=== PATIENT | female | born 1995 ===

== ENCOUNTER 2018-05-11 22:23 | Emergency (ER) | payer OTHER ==
[2018-05-11 22:24] VITALS: BMI 25.3
[2018-05-11 22:32] VITALS: BP 117/73; PULSE 83; RESP 20; TEMP 98.3; O2SAT 100
--- NOTE | 2018-05-11 23:14 | C.PDOC ---
History Of Present Illness 22 year old female presents to the ED c/o pain and swelling to her left 3rd toe. Patient reports that today while walking she tripped and injured her left foot mainly her left 3rd toe. Patient denies any other injury, weakness, numbness, rash. Time Seen by Provider: 05/11/18 22:36 Chief Complaint (Nursing): Lower Extremity Problem/Injury History Per: Patient History/Exam Limitations: no limitations Onset/Duration Of Symptoms: Hrs Current Symptoms Are (Timing): Still Present Recent travel outside of the [place]: No Additional History Per: Patient - Ankle/Foot Description Of Injury: Fell Currently Unable To: Bend Or Move Past Medical History Reviewed: Historical Data, Nursing Documentation, Vital Signs Vital Signs: Last Vital Signs Temp 98.3 F 05/11/18 22:26 Pulse 83 05/11/18 22:26 Resp 20 05/11/18 22:26 BP 117/73 05/11/18 22:26 Pulse Ox 100 05/11/18 23:21 - Medical History PMH: No Chronic Diseases Surgical History: No Surg Hx Family History: States: Unknown Family Hx - Social History Hx Alcohol Use: Yes Hx Substance Use: No - Immunization History Hx Tetanus Toxoid Vaccination: No Hx Influenza Vaccination: No Hx Pneumococcal Vaccination: No Review Of Systems Constitutional: Negative for: Fever, Chills Cardiovascular: Negative for: Chest Pain Respiratory: Negative for: Shortness of Breath Gastrointestinal: Negative for: Nausea, Vomiting Musculoskeletal: Positive for: Foot Pain Skin: Positive for: Bruising Neurological: Negative for: Weakness, Numbness Physical Exam - Physical Exam Appears: Non-toxic, No Acute Distress Skin: Normal Color, Warm, Dry Head: Atraumatic, Normacephalic Eye(s): bilateral: Normal Inspection Neck: Normal ROM, Supple Extremity: Normal ROM, Tenderness (ecchymosis distal left 3rd great toe), Capillary Refill (< 2 seconds), No Deformity, Swelling (minimal left 3rd great toe) Extremity: Bilateral: Normal Color And Temperature Pulses: Left Dorsalis Pedis: Normal, Right Dorsalis Pedis: Normal Neurological/Psych: Oriented x3, Normal Speech Gait: Steady ED Course And Treatment O2 Sat by Pulse Oximetry: 100 (ON RA) Pulse Ox Interpretation: Normal - Other Rad Left foot X-Ray X-Ray: Interpreted by Me, Viewed By Me Interpretation: non displaced fracture of left 3rd PIP Progress Note: Plan: - Motrin 600 mg PO. - Left foot X-Ray. Patient's toes were naida taped ( Lt 2nd and 3rd toes). Patient was instructed to follow up with PMD in 1-2 days for further evaluation. Reevaluation Time: 23:24 Reassessment Condition: Improved Disposition Counseled Patient/Family Regarding: Diagnosis, Need For Followup - Disposition Referrals: [facility] [Outside] [facility] [Outside] Disposition: HOME/ ROUTINE Disposition Time: 23:25 Condition: STABLE Additional Instructions: Leg elevation Apply ICE to area Follow up in podiatry clinic Motrin for pain Return to ER if worse Prescriptions: Ibuprofen [Motrin] 600 mg PO Q6H #20 tab Instructions: Toe Fracture (DC) Forms: [facility] [facility] (Wallisian) - Clinical Impression Clinical Impression: Toe fracture, left - 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 - Scribe Statement The provider has reviewed the documentation as recorded by the Scribe Scooter Perdomo All medical record entries made by the Scribe were at my direction and personally dictated by me. I have reviewed the chart and agree that the record accurately reflects my personal performance of the history, physical exam, medical decision making, and the department course for this patient. I have also personally directed, reviewed, and agree with the discharge instructions and disposition.
--- NOTE | 2018-05-12 10:07 | RAD ---
PROCEDURE: Left Foot Radiographs. HISTORY: R/O FX COMPARISON: None. FINDINGS: BONES: Minimally displaced intra-articular fracture along the lateral base of the 3rd digit middle phalanx. JOINTS: Normal. SOFT TISSUES: Normal. OTHER FINDINGS: None. IMPRESSION: Minimally displaced fracture along the lateral base of the 3rd middle digit phalanx.
== END 2018-05-11 23:29 | disposition home or self-care (01) ==
LOC: C.ER 22:23
DX: S92.515A Nondisplaced fracture of proximal phalanx of left lesser toe(s), initial encounter for closed fracture (principal); W01.0XXA Fall on same level from slipping, tripping and stumbling without subsequent striking against object, initial encounter; Y93.01 Activity, walking, marching and hiking

== ENCOUNTER 2018-07-15 05:09 | Emergency (ER) | payer OTHER ==
[2018-07-15 05:09] VITALS: BMI 25.3
[2018-07-15 05:22] VITALS: RESP 20
--- NOTE | 2018-07-15 05:48 | C.PDOC ---
History Of Present Illness 22 year old female with no significant PMHx presents to the ED c/o left arm pain radiating to her left shoulder that started today at 03:00. Patient states she a venipuncture done and was poked in her arm multiple times which she thinks is causing the pain. Patient denies fever, chills, injury, fall, trauma, SOB, CP, weakness, numbness. Time Seen by Provider: 07/15/18 05:40 Chief Complaint (Nursing): Upper Extremity Problem/Injury History Per: Patient History/Exam Limitations: no limitations Onset/Duration Of Symptoms: Hrs Current Symptoms Are (Timing): Still Present Quality: "Pain" Recent travel outside of the [place]: No Additional History Per: Patient Past Medical History Reviewed: Historical Data, Nursing Documentation, Vital Signs Vital Signs: Last Vital Signs Temp 98.3 F 07/15/18 05:16 Pulse 89 07/15/18 05:16 Resp 20 07/15/18 05:16 BP 121/87 07/15/18 05:16 Pulse Ox 98 07/15/18 05:47 - Medical History PMH: No Chronic Diseases Surgical History: No Surg Hx Family History: States: Unknown Family Hx - Social History Hx Alcohol Use: Yes Hx Substance Use: No - Immunization History Hx Tetanus Toxoid Vaccination: No Hx Influenza Vaccination: No Hx Pneumococcal Vaccination: No Review Of Systems Constitutional: Negative for: Fever, Chills Cardiovascular: Negative for: Chest Pain, Palpitations Respiratory: Negative for: Cough, Shortness of Breath Gastrointestinal: Negative for: Nausea, Vomiting Musculoskeletal: Positive for: Arm Pain Skin: Negative for: Rash Neurological: Negative for: Weakness, Numbness Physical Exam - Physical Exam Appears: Non-toxic, No Acute Distress Skin: Normal Color, Warm, Dry Head: Atraumatic, Normacephalic Eye(s): bilateral: Normal Inspection, PERRL Oral Mucosa: Moist Neck: Normal ROM, Supple Chest: Symmetrical, No Tenderness Cardiovascular: Rhythm Regular Respiratory: Normal Breath Sounds, No Rales, No Rhonchi, No Wheezing Gastrointestinal/Abdominal: Soft, No Tenderness, No Guarding, No Rebound Extremity: Normal ROM, No Tenderness, Capillary Refill (< 2 seconds), No Swelling, No Other (discoloration to left arm or palpable mass) Extremity: Bilateral: Atraumatic Pulses: Left Radial: Normal, Right Radial: Normal Neurological/Psych: Oriented x3, Normal Speech, Normal Cognition, Normal Motor, Normal Sensation Gait: Steady ED Course And Treatment O2 Sat by Pulse Oximetry: 98 (ON RA) Pulse Ox Interpretation: Normal Progress Note: Plan: - Motrin 600 mg PO. On reassessment, patient is resting comfortably, and is in no acute distress. Patient was instructed to follow up with physician/clinic in 1-2 days for further evaluation. 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 - Scribe Statement The provider has reviewed the documentation as recorded by the Scribe Scooter Perdomo All medical record entries made by the Scribe were at my direction and personally dictated by me. I have reviewed the chart and agree that the record accurately reflects my personal performance of the history, physical exam, medical decision making, and the department course for this patient. I have also personally directed, reviewed, and agree with the discharge instructions and disposition.
[2018-07-15 06:23] VITALS: BP 128/72; PULSE 84; TEMP 98; O2SAT 99
== END 2018-07-15 06:23 | disposition home or self-care (01) ==
LOC: C.ER 05:09
DX: M25.512 Pain in left shoulder (principal)